=== PATIENT | female | born 1960 | race Caucasian/White ===

== ENCOUNTER 2019-07-29 07:31 | Outpatient (CLI) | payer OTHER, SELFPAY ==
[2019-07-29 07:57] LABS: Basophils Absolute Auto 0.1 K/mm3 (0.0-0.1); Basophils Percent Auto 1.5 % (0.2-1.2); Eosinophils Absolute Auto 0.4 K/mm3 (0-0.3); Eosinophils Percent Auto 6.6 % (0-4.4); Hematocrit 43.3 % (37.0-47.0); Hemoglobin 13.6 g/dL (12.0-15.0); Immature Granulocyte Absolute 0.01 K/mm3 (0.00-0.031); Immature Granulocyte Percent A 0.2 % (0-0.5); Lymphocytes Absolute Auto 1.15 K/mm3 (0.9-3.2); Lymphocytes Percent Auto 21.6 % (18.3-44.2); Mean Corpuscular HGB Conc 31.4 g/dl (32-36); Mean Corpuscular Hemoglobin 28.4 pg (26-34); Mean Corpuscular Volume 90.4 fl (80-100); Mean Platelet Volume 10.8 fl (7.4-10.4); Monocytes Absolute Auto 0.6 K/mm3 (0.1-0.6); Monocytes Percent Auto 11.5 % (2.6-8.5); Neutrophils Absolute Auto 3.1 K/mm3 (1.3-6.7); Neutrophils Percent Auto 58.6 % (45.5-73.1); Platelet Count Result 349 k/mm3 (150-375); Red Blood Count 4.79 M/mm3 (4.2-5.4); Red Cell Distribution Width 13.6 % (11.5-14.5); White Blood Count 5.3 K/mm3 (4.5-10.0)
[2019-07-29 08:10] LABS: Alanine Aminotransferase 73 U/L (4-35); Aspartate Amino Transferase 53 U/L (14-36); CRP 0.7 mg/dL (<1.0)
[2019-07-29 08:14] LABS: Complement C3 109 mg/dL (88-165)
[2019-07-29 08:42] LABS: Erythrocyte Sedimentation Rate 3 mm/hr (0-20)
[2019-08-01 04:42] LABS: Albumin 4.3 g/dL (3.8-4.8); Alpha 1 Globulin 0.3 g/dL (0.2-0.3); Alpha 2 Globulin 0.6 g/dL (0.5-0.9); Beta 1 Globulin 0.4 g/dL (0.4-0.6); Gamma Globulin 0.8 g/dL (0.8-1.7); Protein, Total 6.7 g/dL (6.1-8.1)
== END 2019-07-29 07:32 | disposition home or self-care (01) ==
DX: M35.00 Sjogren syndrome, unspecified (principal); M19.90 Unspecified osteoarthritis, unspecified site; M46.90 Unspecified inflammatory spondylopathy, site unspecified; Z79.899 Other long term (current) drug therapy
CPT/HCPCS: 36415; 84155; 84165; 84450; 84460; 85025; 85652; 86140; 86160